=== PATIENT | male | born 1975 | race Caucasian/White ===

== ENCOUNTER 2022-05-27 10:28 | Emergency (ER) | payer OTHER ==
[~2022-05-27] VITALS: Ht 188 cm; Wt 99.8 kg
[2022-05-27] MEDS ORDERED: Prednisone20 MG PO (10:59)
[2022-05-27] MEDS ORDERED: CODEINE-GUAIFE120 M1 PO (10:59)
[2022-05-27] MEDS ORDERED: AMOX-CLAV 875-1 EAC1 PO (10:59)
== END 2022-05-27 11:09 | disposition home or self-care (01) ==
LOC: ER 10:28
DX: J01.90 Acute sinusitis, unspecified (principal); Z79.899 Other long term (current) drug therapy; Z87.891 Personal history of nicotine dependence; Z20.828 Contact with and (suspected) exposure to other viral communicable diseases
CPT/HCPCS: 99283